=== PATIENT | female | born 1970 | race Caucasian/White ===

== ENCOUNTER → 2019-04-22 08:25 | Outpatient (BNVA) | payer OTHER, SELFPAY | PROVIDERS: Family Provider Family Medicine; PCP Family Medicine; Visit Provider Specialist | DX: G43.711 Chronic migraine without aura, intractable, with status migrainosus (principal) | CPT/HCPCS: 64615; J0585 ==

== ENCOUNTER 2019-05-17 13:01 | Outpatient (CLI) | payer OTHER, SELFPAY ==
--- NOTE | 2019-05-17 13:10 | XR_ITS ---
WS: [id number] LUMBAR SPINE TECHNIQUE: 3 views of the lumbar spine CLINICAL INFORMATION: LOW BACK PAIN COMPARISON: None. FINDINGS: Five [id number] lumbar vertebral bodies. Minimal lumbar curve convex left. Surgical clips overly ing the right renal fossa. Slight retrolisthesis L2 on L3 and L3 on L4 measuring 3 to 4 mm. Moderate facet arthropathy L4-L5 and L5-S1. Disc space heights are well preserved. Mild disc space narrowing L 5-S1. XR/XR lumbar spine 2-3V* [id number] IMPRESSION: 1. Minimal lumbar curve convex left. 2. No acute appearing compression fractures. 3. Slight retrolisthesis L2 on L3 and L3 on L4 measuring 3-4 mm.
--- NOTE | 2019-05-17 13:10 | XR_ITS ---
WS: [id number] HIPS BILATERAL TECHNIQUE: 5 views bilateral hips Including pelvis CLINICAL INFORMATION: HIP PAIN BILATERAL COMPARISON: None. FINDINGS: Both hips are normal in appearance. No acute fractures. Normal visualized pubic rami. XR/XR hip BI 3-4V wo/w [place] [id number] IMPRESSION: Normal bilateral hips
== END 2019-05-17 13:02 | disposition home or self-care (01) ==
LOC: RADWPI 13:05
PROVIDERS: Family Provider Family Medicine; PCP Family Medicine; Visit Provider Family Medicine
DX: M54.5 Low back pain (principal); M25.552 Pain in left hip; M25.551 Pain in right hip
CPT/HCPCS: 72100; 73522

== ENCOUNTER → 2019-07-29 12:52 | Outpatient (BNVA) | payer OTHER, SELFPAY | PROVIDERS: Family Provider Family Medicine; PCP Family Medicine; Visit Provider Specialist | DX: G43.711 Chronic migraine without aura, intractable, with status migrainosus (principal) | CPT/HCPCS: 64615; J0585 ==

== ENCOUNTER → 2019-09-14 16:23 | Outpatient (BNVA) | payer OTHER, SELFPAY | PROVIDERS: Family Provider Family Medicine; PCP Family Medicine; Visit Provider Internal Medicine Cardiovascular Disease | DX: I49.8 Other specified cardiac arrhythmias (principal); G47.33 Obstructive sleep apnea (adult) (pediatric); Q07.00 Arnold-Chiari syndrome without spina bifida or hydrocephalus; R07.89 Other chest pain | CPT/HCPCS: 80162 ==

== ENCOUNTER → 2019-10-21 10:36 | Outpatient (BNVA) | payer OTHER, SELFPAY | PROVIDERS: Family Provider Family Medicine; PCP Family Medicine; Visit Provider Specialist | DX: G43.711 Chronic migraine without aura, intractable, with status migrainosus (principal) | CPT/HCPCS: 64615; J0585 ==

== ENCOUNTER 2019-11-23 11:12 | Outpatient (CLI) | payer OTHER, SELFPAY ==
--- NOTE | 2019-11-23 | XR_ITS ---
WS: [id number] RIGHT SHOULDER: 2 VIEW(S) TECHNIQUE: Internal and external rotation. HISTORY: SHOULDER PAIN COMPARISON: None available. No fracture or dislocation or soft tissue abnormality. Glenohumeral and AC joints are unremarkable. XR/XR shoulder RT min 2V* [id number] IMPRESSION: Normal RIGHT shoulder.
== END 2019-11-23 11:13 | disposition home or self-care (01) ==
LOC: RADWPI 11:15
PROVIDERS: Family Provider Family Medicine; PCP Family Medicine; Visit Provider Family Medicine
DX: M25.511 Pain in right shoulder (principal)
CPT/HCPCS: 73030

== ENCOUNTER 2020-01-06 08:23 | Outpatient (CLI) | payer OTHER, SELFPAY ==
--- NOTE | 2020-01-06 08:28 | MR_ITS ---
WS: [id number] MRI RIGHT SHOULDER NONCONTRAST TECHNIQUE: Sagittal T2, coronal T1, T2 and proton density imaging. Axial gradient PDE imaging. CLINICAL INFORMATION: RIGHT SHOULDER PAIN COMPARISON: None. FINDINGS: Mild degenerative arthritis AC joint with mild downsloping acromion. Slight subacromial spurring. Mil d narrowing of the subacromial space. Degenerative arthritis with joint space narrowing at the glenoh umeral joint. Supraspinatus appears intact. Infraspinatus appears intact. Normal teres minor and subscapularis. No full-thickness rotator cuff tears. Normal biceps tendon in the bicipital groove. Normal glenoid labru m. Normal bone marrow signal in the bony glenoid. Normal visualized soft tissues. MR/MR shoulder RT wo con* [id number] IMPRESSION: 1. Mild degenerative arthritis AC joint with mild downsloping of the acromion with slight subacromial spurring. 2. Supraspinatus and infraspinatus are intact. No full-thickness rotator cuff tears. 3. Normal subscapularis tendon. Normal biceps tendon in the bicipital groove. 4. Glenoid labrum appears grossly intact. 5. No other significant findings.
== END 2020-01-06 08:24 | disposition home or self-care (01) ==
LOC: RADSHAW 08:26
PROVIDERS: PCP Family Medicine; Visit Provider Family Medicine
DX: M19.011 Primary osteoarthritis, right shoulder (principal)
CPT/HCPCS: 73221

== ENCOUNTER 2020-02-10 07:34 | Outpatient (CLI) | payer OTHER, SELFPAY ==
--- NOTE | 2020-02-10 07:42 | MM_ITS ---
WS: [id number] Bilateral diagnostic digital mammogram, 02/10/2020 Clinical Data: HX OF BREAST CA Comparison: 01/17/2019, 10/29/2017, 10/07/2016, 09/15/2015, 09/13/2014, 09/09/2013, 08/10/2012, 02/11/2012, 08/08/2011, 07/10/2011, 01/31/2011, 12/06/2010, 09/14/2010, 03/20/2010, 02/21/2010. Findings: The breasts are extremely dense. There are biopsy clips in both breasts. Spiculated masses or cluster ed calcifications are seen. There are no secondary signs of carcinoma.. MM/[place] [id number] Impression: 1. Negative bilateral mammograms unchanged. 2. Recommend annual mammograms. BIRADS: 1-Negative FOLLOW UP: 1 Year Follow-up The CAD return checker was used.
== END 2020-02-10 07:35 | disposition home or self-care (01) ==
LOC: RADSHAW 07:37
PROVIDERS: PCP Family Medicine; Visit Provider Family Medicine
DX: Z85.3 Personal history of malignant neoplasm of breast (principal)
CPT/HCPCS: 77066

== ENCOUNTER → 2020-03-09 13:31 | Outpatient (BNVA) | payer OTHER, SELFPAY | PROVIDERS: PCP Family Medicine; Visit Provider Specialist | DX: G43.711 Chronic migraine without aura, intractable, with status migrainosus (principal) | CPT/HCPCS: 64615; J0585 ==

== ENCOUNTER → 2020-06-15 13:15 | Outpatient (BNVA) | payer OTHER, SELFPAY | PROVIDERS: PCP Family Medicine; Visit Provider Specialist | DX: G43.711 Chronic migraine without aura, intractable, with status migrainosus (principal) | CPT/HCPCS: 64615; J0585 ==

== ENCOUNTER → 2020-07-26 12:19 | Outpatient (BNVA) | payer OTHER, SELFPAY | PROVIDERS: PCP Family Medicine; Visit Provider Specialist | DX: M54.81 Occipital neuralgia (principal); G43.711 Chronic migraine without aura, intractable, with status migrainosus; Q07.00 Arnold-Chiari syndrome without spina bifida or hydrocephalus | CPT/HCPCS: 64405; 99212; J1030; J3490 ==

== ENCOUNTER → 2020-09-07 14:05 | Outpatient (BNVA) | payer OTHER, SELFPAY | PROVIDERS: PCP Family Medicine; Visit Provider Specialist | DX: G43.709 Chronic migraine without aura, not intractable, without status migrainosus (principal); M54.81 Occipital neuralgia | CPT/HCPCS: 64615; J0585 ==

== ENCOUNTER → 2020-09-22 09:23 | Outpatient (BNVA) | payer OTHER, SELFPAY | PROVIDERS: PCP Family Medicine; Visit Provider Specialist | DX: M54.81 Occipital neuralgia (principal); G43.711 Chronic migraine without aura, intractable, with status migrainosus; Q07.00 Arnold-Chiari syndrome without spina bifida or hydrocephalus | CPT/HCPCS: 64405; 99212; 99213; J0585 ==

== ENCOUNTER 2020-11-21 11:52 | Outpatient (CLI) | payer OTHER, SELFPAY ==
--- NOTE | 2020-11-21 12:05 | CT_ITS ---
WS: [id number] CT ABDOMEN AND PELVIS WITH CONTRAST HISTORY: RT LOWER AND UPPER QUADRANT PAIN TECHNIQUE: Imaging performed of the abdomen and pelvis with IV contrast. Single phase imaging of the abdomen. Coronal and sagittal reformats are submitted. All CT scans at [facility] use at least one of these dose optimization techniques: automated exposure control; mA and/or kV adjustment per patient size (includes targeted exams where dose is matched to clinical indication); or iterativ e reconstruction. IV CONTRAST: Omnipaque 300; 95 mL IV. Oral contrast: Yes. DLP: 871.46 mGycm COMPARISON: None available. Lower thorax: Lung bases are clear. Heart is normal size. Small hiatal hernia. Liver/biliary system: Top normal size with no intrahepatic dilatation. Gallbladder: Status post cholecystectomy. Pancreas: Normal size pancreas and pancreatic duct. No adjacent inflammation. Spleen: Normal size spleen. No mass or infarct. Adrenal glands: Normal. Right kidney: Normal size kidney. Tiny cortical hypodense densities are too small to characterize. No obstruction or solid mass. Left kidney: Normal size with peripheral tiny cortical hypodensities. No obstruction or solid mass. Aorta: Normal. Lymphadenopathy: None. Free fluid: None. GI tract: Mild diffuse constipation. Cecum is deep within the pelvis. The appendix is not definitely identified. No obstruction of the GI tract. There is moderate diffuse fecal retention and constipatio n. Abdominal wall: Unremarkable abdominal wall. No hernia. Pelvis: Prior hysterectomy. No pelvic masses. No free fluid. Urinary bladder is only partially disten ded. Bones: Unremarkable. CT/CT abdomen pelvis w con* [id number] IMPRESSION: 1. No acute abdominal or pelvic abnormalities. 2. Prior cholecystectomy and hysterectomy. 3. Liver is top normal size with no bile duct dilatation or mass. 4. Diffuse moderate constipation.
[2020-11-21] MEDS: iohexol 300 mg/mL 50 mL Btl PO (12:08)
[2020-11-21] MEDS: iohexol 300 mg/mL 100 mL Btl IV (13:37)
== END 2020-11-21 11:53 | disposition home or self-care (01) ==
PROVIDERS: PCP Family Medicine; Visit Provider Family Medicine
DX: R10.31 Right lower quadrant pain (principal); R10.11 Right upper quadrant pain; K59.00 Constipation, unspecified; Z90.49 Acquired absence of other specified parts of digestive tract; Z90.710 Acquired absence of both cervix and uterus
CPT/HCPCS: 74177; Q9967

== ENCOUNTER → 2020-11-30 14:37 | Outpatient (BNVA) | payer OTHER, SELFPAY | PROVIDERS: PCP Family Medicine; Visit Provider Specialist | DX: G43.711 Chronic migraine without aura, intractable, with status migrainosus (principal); M54.81 Occipital neuralgia; Q07.00 Arnold-Chiari syndrome without spina bifida or hydrocephalus | CPT/HCPCS: 64615; J0585 ==

== ENCOUNTER → 2020-12-27 14:35 | Outpatient (BNVA) | payer OTHER, SELFPAY | PROVIDERS: PCP Family Medicine; Visit Provider Specialist | DX: M54.81 Occipital neuralgia (principal); Q07.00 Arnold-Chiari syndrome without spina bifida or hydrocephalus; G43.711 Chronic migraine without aura, intractable, with status migrainosus | CPT/HCPCS: 64405; 64450; J1030; J3490 ==

== ENCOUNTER → 2021-02-13 08:28 | Outpatient (BNVA) | payer OTHER, SELFPAY | PROVIDERS: PCP Family Medicine; Visit Provider Specialist | DX: M54.81 Occipital neuralgia (principal); G43.711 Chronic migraine without aura, intractable, with status migrainosus; G47.33 Obstructive sleep apnea (adult) (pediatric); Q07.00 Arnold-Chiari syndrome without spina bifida or hydrocephalus | CPT/HCPCS: 64405; 64450; J1030; J3490 ==

== ENCOUNTER 2021-03-26 12:51 | Outpatient (CLI) | payer OTHER, SELFPAY ==
--- NOTE | 2021-03-26 13:04 | MM_ITS ---
WS: [id number] BILATERAL DIGITAL DIAGNOSTIC MAMMOGRAM MAMMOGRAPHY WITH CAD CLINICAL INFORMATION: HX OF BREAST CA COMPARISON: February 10, 2020 TECHNIQUE: Bilateral CC, MLO, and ML views. FINDINGS: The breasts are composed of heterogeneous fibroglandular density, which can limit the detection of sm all underlying mass lesions. Bilateral breast biopsy clips. No suspicious focal mass, asymmetry, calcifications, or architectural distortion. No evidence of josh gnancy. MM/[place] [id number] IMPRESSION: BI-RADS: 2-Benign FOLLOW UP: 1 Year Follow-up Recommend return to annual diagnostic mammography.
== END 2021-03-26 12:52 | disposition home or self-care (01) ==
LOC: RADSHAW 12:58
PROVIDERS: PCP Family Medicine; Visit Provider Family Medicine
DX: Z85.3 Personal history of malignant neoplasm of breast (principal)
CPT/HCPCS: 77066

== ENCOUNTER → 2021-09-06 13:23 | Outpatient (BNVA) | payer OTHER, SELFPAY | PROVIDERS: PCP Family Medicine; Visit Provider Family Medicine | DX: Z00.00 Encounter for general adult medical examination without abnormal findings (principal); Z13.220 Encounter for screening for lipoid disorders; R10.13 Epigastric pain | CPT/HCPCS: 80053; 80061; 83690; 85025; 86140 ==

== ENCOUNTER → 2021-09-26 12:10 | Outpatient (BNVA) | payer OTHER, SELFPAY | PROVIDERS: PCP Family Medicine; Visit Provider Internal Medicine Cardiovascular Disease | DX: R60.0 Localized edema (principal); I50.33 Acute on chronic diastolic (congestive) heart failure; R06.02 Shortness of breath | CPT/HCPCS: 80048; 83880 ==

== ENCOUNTER 2022-03-19 06:55 | Outpatient (CLI) | payer OTHER, SELFPAY ==
--- NOTE | 2022-03-19 07:15 | MR_ITS ---
WS: [id number] MRI HEAD WITHOUT CONTRAST TECHNIQUE: Sagittal T1, T2 axial, T2 axial FLAIR, axial and coronal T1 images, axial susceptibility w eighted imaging, axial diffusion weighted images, and coronal T2 images were obtained. 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 COMPARISON: MRI and December 22, 2015 FINDINGS: Prior postoperative changes resection of the posterior arch of C1 with Chiari decompression is unchan ged from previous. No significant crowding of the foramen magnum. Brainstem signal is normal. Chiari malformation has been decompressed. Normal fourth ventricle. No hydrocephalus. Paranasal sinuses and mastoid air cells are well aerated. Normal midline structures. No hemosiderin o n the susceptibly weighted imaging. Normal posterior fossa. Normal vascular flow voids at the skull b ase. No extra-axial fluid collections. No evidence of restricted diffusion to suggest acute ischemia. Moderate supratentorial white matter c hanges nonspecific in a patient this age but can be seen with hypertension, diabetes, and migraine he adaches. Demyelinating disease is less likely. This is unchanged from previous. MR/MR head wo con* [id number] IMPRESSION: 1. Prior postoperative changes of occipital craniotomy with resection posterio r arch of C1 for Chiari decompression. This is unchanged in appearance from pre vious. 2. Cerebellar tonsils are normal. No significant crowding of the foramen magnu m. Normal fourth ventricle. 3. No hydrocephalus. 4. Stable patchy supratentorial white matter changes nonspecific in a patient this age as previously described but unchanged.
--- NOTE | 2022-03-19 08:00 | MR_ITS ---
WS: [id number] MRI CERVICAL SPINE NONCONTRAST TECHNIQUE: Sagittal T1, T2 and STIR imaging. Axial T2, gradient, and fiesta imaging. 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 COMPARISON: None. FINDINGS: Prior postoperative changes resection of the posterior arch of C1 with Chiari decompression described on the MRI brain. Upper cervical spinal canal is patent. Small central protrusion at C5-C6. Cord sig nal is normal. No high-grade central canal stenosis. C2-C3: Mild RIGHT bony foraminal narrowing. Spinal canal and foramen are patent. Mild facet arthropat hy. C3-C4: Mild facet arthropathy. Spinal canal and foramen are patent. C4-C5: No significant disc bulging. Mild facet arthropathy. Spinal canal and foramen are patent. C5-C6: Shallow central disc protrusion with slight contact of the cervical cord. Spinal canal is barry nt. Mild facet arthropathy. Mild LEFT and no significant RIGHT foraminal narrowing. C6-C7: Mild disc osteophytic ridging. Mild LEFT and no significant RIGHT foraminal narrowing. Spinal canal is patent. C7-T1: Mild osteophytic ridging. Mild bilateral bony foraminal narrowing. Spinal canal is patent. Visualized brain stem structures: Normal. Prevertebral soft tissues: Normal. MR/MR cervical spin wo con* [id number] IMPRESSION: 1. Prior postoperative changes Chiari decompression as described on the MRI br ain with resection of posterior arch C1. 2. Upper cervical canal is patent. No syrinx in the cervical cord. 3. Shallow central disc protrusion C5-C6 with slight contact of the cervical c ord. Spinal canal is patent. 4. Otherwise Mild bony foraminal narrowing described above.
== END 2022-03-19 06:56 | disposition home or self-care (01) ==
LOC: RAD 06:55
PROVIDERS: PCP Family Medicine; Visit Provider Specialist
DX: Q07.00 Arnold-Chiari syndrome without spina bifida or hydrocephalus (principal); M50.222 Other cervical disc displacement at C5-C6 level
CPT/HCPCS: 70551; 72141

== ENCOUNTER 2022-03-28 08:41 | Outpatient (CLI) | payer OTHER, SELFPAY ==
--- NOTE | 2022-03-28 08:49 | MM_ITS ---
WS: [id number] BILATERAL DIAGNOSTIC DIGITAL BREAST MAMMOGRAPHY WITH CHOLO DISPLACEMENT VIEWS. CAD PERFORMED. RIGHT BREAST ULTRASOUND, LIMITED. HISTORY: HX OF BREAST CA, palpable nodule RIGHT breast. COMPARISON: 03/26/2021, 02/10/2020 and 12/30/2018 Bilateral craniocaudal and mediolateral oblique views are performed with tomosynthesis and SM. Cholo displacement views in CC and MLO projection also performed. Breasts composition: The breasts are extremely dense, which lowers the sensitivity of mammography. Partially obscured mass measuring 14 x 15 mm corresponds to the palpable marker. Mass is in the poste rior medial RIGHT breast. There is additional biopsy clip in the lateral RIGHT breast. Biopsy clip in the posterior LEFT breast. RIGHT breast ultrasound, limited. Ultrasound directed to the palpable nodule. Along the 2:00 axis, 2 cm from the nipple is a cluster of cysts. The largest cyst measures 1.7 x 0.9 cm. There is increased soft tissue in the posterior wall of the largest cyst which may be increased proteinaceous material as it does appear to layer. The sep tations some of this is an irregular. There is no increased vascularity. MM/[place] [id number] IMPRESSION: BI-RADS: 3-Probably Benign FOLLOW-UP: 6 Month Follow-up 1. Recommend 6 month RIGHT breast ultrasound follow-up to reevaluate the clust er of cysts. This cluster cyst is not completely cystic. There are a few small septations and layering proteinaceous debris. 2. Alternatively, ultrasound-guided biopsy could easily be performed.
--- NOTE | 2022-03-28 09:31 | US_ITS ---
WS: [id number] BILATERAL DIAGNOSTIC DIGITAL BREAST MAMMOGRAPHY WITH CHOLO DISPLACEMENT VIEWS. CAD PERFORMED. RIGHT BREAST ULTRASOUND, LIMITED. HISTORY: HX OF BREAST CA, palpable nodule RIGHT breast. COMPARISON: 03/26/2021, 02/10/2020 and 12/30/2018 Bilateral craniocaudal and mediolateral oblique views are performed with tomosynthesis and SM. Cholo displacement views in CC and MLO projection also performed. Breasts composition: The breasts are extremely dense, which lowers the sensitivity of mammography. Partially obscured mass measuring 14 x 15 mm corresponds to the palpable marker. Mass is in the poste rior medial RIGHT breast. There is additional biopsy clip in the lateral RIGHT breast. Biopsy clip in the posterior LEFT breast. RIGHT breast ultrasound, limited. Ultrasound directed to the palpable nodule. Along the 2:00 axis, 2 cm from the nipple is a cluster of cysts. The largest cyst measures 1.7 x 0.9 cm. There is increased soft tissue in the posterior wall of the largest cyst which may be increased proteinaceous material as it does appear to layer. The sep tations some of this is an irregular. There is no increased vascularity. US/US breast RT limited* [id number] IMPRESSION: BI-RADS: 3-Probably Benign FOLLOW-UP: 6 Month Follow-up 1. Recommend 6 month RIGHT breast ultrasound follow-up to reevaluate the clust er of cysts. This cluster cyst is not completely cystic. There are a few small septations and layering proteinaceous debris. 2. Alternatively, ultrasound-guided biopsy could easily be performed.
== END 2022-03-28 08:42 | disposition home or self-care (01) ==
PROVIDERS: PCP Family Medicine; Visit Provider Family Medicine
DX: Z85.3 Personal history of malignant neoplasm of breast (principal); N63.12 Unspecified lump in the right breast, upper inner quadrant
CPT/HCPCS: 76642; 77062; G0279

== ENCOUNTER 2022-04-02 09:41 | Outpatient (RCR) | payer OTHER, SELFPAY | END 2022-04-30 23:59 | disposition home or self-care (01) | LOC: SPT 09:41 | PROVIDERS: PCP Family Medicine; Visit Provider Family Medicine | DX: M25.551 Pain in right hip (principal) | CPT/HCPCS: 97110; 97161 ==

== ENCOUNTER → 2022-04-03 11:44 | Outpatient (BNVA) | payer OTHER, SELFPAY | PROVIDERS: PCP Family Medicine; Visit Provider Internal Medicine Cardiovascular Disease | DX: I50.9 Heart failure, unspecified (principal); R06.02 Shortness of breath | CPT/HCPCS: 36415; 80048; 80162 ==

== ENCOUNTER 2022-05-01 06:00 | Outpatient (RCR) | payer OTHER, SELFPAY | END 2022-05-03 23:59 | disposition home or self-care (01) | LOC: SPT 06:00 | PROVIDERS: PCP Family Medicine; Visit Provider Family Medicine | DX: M25.551 Pain in right hip (principal) | CPT/HCPCS: 97110 ==

== ENCOUNTER → 2022-05-22 15:04 | Outpatient (BNVA) | payer OTHER, SELFPAY | PROVIDERS: PCP Family Medicine; Visit Provider Clinical Nurse Specialist Adult Health | DX: R10.9 Unspecified abdominal pain (principal); K21.9 Gastro-esophageal reflux disease without esophagitis | CPT/HCPCS: 81000 ==

== ENCOUNTER 2022-05-24 11:53 | Outpatient (RCR) | payer OTHER, SELFPAY | END 2022-05-28 23:59 | disposition home or self-care (01) | LOC: SPT 11:53 | PROVIDERS: PCP Family Medicine; Visit Provider Specialist | DX: M54.2 Cervicalgia (principal) | CPT/HCPCS: 97162; 97530 ==

== ENCOUNTER 2022-05-29 06:00 | Outpatient (RCR) | payer OTHER, SELFPAY | END 2022-06-28 23:59 | disposition home or self-care (01) | LOC: SPT 06:00 | PROVIDERS: PCP Family Medicine; Visit Provider Specialist | DX: M54.2 Cervicalgia (principal) | CPT/HCPCS: 97110 ==

== ENCOUNTER → 2022-07-31 08:10 | Outpatient (BNVA) | payer OTHER, SELFPAY | PROVIDERS: PCP Family Medicine; Visit Provider Family Medicine | DX: E03.9 Hypothyroidism, unspecified (principal); N39.0 Urinary tract infection, site not specified; Z13.220 Encounter for screening for lipoid disorders; Z51.81 Encounter for therapeutic drug level monitoring | CPT/HCPCS: 80053; 80061; 83735; 84443; 85025; 87086 ==

== ENCOUNTER 2022-10-15 07:55 | Outpatient (CLI) | payer OTHER, SELFPAY ==
--- NOTE | 2022-10-15 08:45 | US_ITS ---
WS: [id number] ULTRASOUND BREAST RIGHT TECHNIQUE: Ultrasound right breast focused area of concern. CLINICAL INFORMATION: Cyst with septations on diagnostic mammogram COMPARISON: Ultrasound March 28, 2022 FINDINGS: Ultrasound RIGHT breast 2:00 and 3:00 position 1 cm from the nipple. Lobulated breast cysts are again visualized. Small amount of internal debris within the cysts which are otherwise simple in appearance. Previously described cluster of cysts has improved. The largest cyst measures 1.3 x 0.7 CM. No other suspicious findings. Findings have a benign appearance and recommend return to annual screening mammography. US/US breast RT limited* [id number] IMPRESSION: BI-RADS 2 benign Return to annual screening mammography.
== END 2022-10-15 07:56 | disposition home or self-care (01) ==
LOC: RAD 07:56
PROVIDERS: PCP Family Medicine; Visit Provider Family Medicine
DX: N60.01 Solitary cyst of right breast (principal); R92.8 Other abnormal and inconclusive findings on diagnostic imaging of breast
CPT/HCPCS: 76642

== ENCOUNTER 2023-01-08 12:43 | Outpatient (CLI) | payer OTHER, SELFPAY ==
--- NOTE | 2023-01-08 13:00 | CT_ITS ---
WS: [id number] CT CERVICAL SPINE HISTORY: M50.90 - Cervical disc disorder, unspecified, unspecified..., History of Arnold-Chiari malfo rmation. TECHNIQUE: Contiguous 2.0 mm axial imaging performed through the entire cervical spine. Sagittal and coronal reformats also performed. All CT scans at [facility] use at least one of these dose o ptimization techniques: automated exposure control; mA and/or kV adjustment per patient size (include s targeted exams where dose is matched to clinical indication); or iterative reconstruction. DLP: 164.57 mGy.cm COMPARISON: Prior MRI cervical spine 03/19/2022. Prior postoperative resection of the posterior arch of C1 with Chiari decompression. There is minimal ectasia of the cerebellar tonsils very similar to the prior MRI examination. No progression of the i nferior displacement of the cerebellar tonsils. There is also a surgical resection site involving the mid occipital bone. Normal cervical alignment. No fractures. Lateral masses of C1 and C2 are aligned. C2-C3: No transtentorial herniation of the cerebellar tonsils. Widely patent cervical canal C3-C4: Normal. C4-C5: Normal. C5-C6: Mild osteophytic ridging. No disc protrusions. C6-C7: Normal. C7-T1: Normal. Soft tissues are normal. Lung apices are clear. IMPRESSION: 1. Postoperative resection of the posterior arch of C1 and posterior occipital bone. Postsurgical lesli nges for Chiari decompression. 2. No transtentorial descent of the cerebellar tonsils or progression since 03/19/2022. 3. No significant central or foraminal stenosis.
== END 2023-01-08 12:44 | disposition home or self-care (01) ==
PROVIDERS: PCP Family Medicine; Visit Provider Specialist
DX: M50.90 Cervical disc disorder, unspecified, unspecified cervical region (principal); Z98.890 Other specified postprocedural states
CPT/HCPCS: 72125

== ENCOUNTER → 2023-04-01 10:38 | Outpatient (BNVA) | payer OTHER, SELFPAY | PROVIDERS: PCP Family Medicine; Visit Provider Internal Medicine Cardiovascular Disease | DX: R07.9 Chest pain, unspecified (principal) | CPT/HCPCS: 93005 ==

== ENCOUNTER 2023-04-02 08:35 | Outpatient (CLI) | payer OTHER, SELFPAY ==
--- NOTE | 2023-04-02 08:38 | MM_ITS ---
WS: [id number] Bilateral diagnostic 3D tomosynthesis digital mammogram, 04/02/2023 Clinical Data: HX:CA Comparison: 03/28/2022, 03/26/2021, 02/10/2020, 12/30/2018, 10/29/2017, 10/07/2016, 09/15/2015, 09/13/2014, 09/09/2013, 09/10/2012, 04/12/2011, 08/08/2011, 07/10/2011 09/14/2010 03/20/2010, 02/21/2010. Findings: The breasts show extreme density. There are biopsy clips in both breasts. There are no spiculated mas ses nor clustered calcifications. There are no secondary signs of carcinoma. Impression: 1. Dense breasts unchanged. 2. Return to annual mammograms. MM/[place] [id number] BIRADS: 2-Benign FOLLOW UP: 1 Year Follow-up The CAD material checker was used.
== END 2023-04-02 08:36 | disposition home or self-care (01) ==
LOC: RAD 08:35
PROVIDERS: PCP Family Medicine; Visit Provider Family Medicine
DX: Z85.9 Personal history of malignant neoplasm, unspecified (principal)
CPT/HCPCS: 77062; G0279

== ENCOUNTER → 2023-04-17 11:21 | Outpatient (BNVA) | payer OTHER, SELFPAY | PROVIDERS: PCP Family Medicine; Visit Provider Family Medicine | DX: Z51.81 Encounter for therapeutic drug level monitoring (principal); R10.9 Unspecified abdominal pain; E55.9 Vitamin D deficiency, unspecified; K21.9 Gastro-esophageal reflux disease without esophagitis; Z79.899 Other long term (current) drug therapy | CPT/HCPCS: 80053; 82306; 83690; 85025; 86141 ==

== ENCOUNTER → 2023-07-23 13:01 | Outpatient (BNVA) | payer OTHER, SELFPAY | PROVIDERS: PCP Family Medicine; Visit Provider Family Medicine | DX: E55.9 Vitamin D deficiency, unspecified (principal) | CPT/HCPCS: 82306 ==

== ENCOUNTER → 2023-09-17 14:41 | Outpatient (CLI) | payer OTHER, SELFPAY ==
--- NOTE | 2023-09-17 15:00 | USCV_ITS ---
Jo Manzano Age: 52 Gender: F : 1970 Exam Date: 09/17/2023 14:53 Ordering Phys: Wilbert Cardenas MD ([email or web address]) Technologist: [employer] Exam Location: [facility] [place]ication: PROCEDURES: Venous duplex imaging was performed in only the right lower extremity. On the right side, the common femoral, superficial femoral, profunda femoral, popliteal, posterior tibial, greater saphenous veins and the peroneal trunk were identified and interrogated in the standard fashion. These veins were found to be easily compressible with spontaneous blood flow. No evidence of insufficiency or thrombus noted. FINDINGS: no dvt CONCLUSIONS No evidence of right lower extremity DVT. Jose Arboleda MD (Electronically Signed) Final Date: 17 September 2023 16:55 S
== END | disposition home or self-care (01) ==
LOC: RAD 14:41
PROVIDERS: PCP Family Medicine; Visit Provider Internal Medicine Cardiovascular Disease
DX: M79.661 Pain in right lower leg (principal); M79.89 Other specified soft tissue disorders
CPT/HCPCS: 93971

== ENCOUNTER → 2023-10-07 07:46 | Outpatient (BNVA) | payer OTHER, SELFPAY | PROVIDERS: PCP Family Medicine; Visit Provider Family Medicine | DX: R19.7 Diarrhea, unspecified (principal) | CPT/HCPCS: 87045; 87177; 87209; 87427; 87449 ==

== ENCOUNTER → 2023-10-09 16:13 | Outpatient (CLI) | payer OTHER, SELFPAY ==
--- NOTE | 2023-10-09 16:30 | CTR_ITS ---
PROCEDURE INFORMATION: Exam: CTA Abdomen and Pelvis With Contrast Exam date and time: 10/09/2023 4:20 PM Age: 52 years old Clinical indication: Other: Leg edema; Prior surgery; Surgery date: 6+ months; Surgery type: Hyst, laproscopy x 2-endometriosis; Patient HX: HX of breast cancer TECHNIQUE: Imaging protocol: Computed tomographic angiography of the abdomen and pelvis with contrast. Exam focused on the arteries. 3D rendering (Not supervised by radiologist): MIP and/or 3D reconstructed images were created by the technologist. Radiation optimization: All CT scans at this facility use at least one of these dose optimization techniques: automated exposure control; mA and/or kV adjustment per patient size (includes targeted exams where dose is matched to clinical indication); or iterative reconstruction. Contrast material: OMNI 350; Contrast volume: 100 ml; Contrast route: INTRAVENOUS (IV); COMPARISON: CT abdomen pelvis w con* [id number] 11/21/2020 1:34 PM RADIATION DOSE METRICS: Total DLP (mGy-cm): 200.19 FINDINGS: Aorta: No aortic aneurysm. No aortic dissection. Celiac trunk and mesenteric arteries: No occlusion or significant stenosis. Renal arteries: No occlusion or significant stenosis. Right iliac arteries: No occlusion or significant stenosis. Left iliac arteries: No occlusion or significant stenosis. Liver: No mass. Gallbladder and biliary ducts: Cholecystectomy. The bile ducts are normal. Pancreas: Unremarkable. No mass. No ductal dilation. Spleen: Unremarkable. No splenomegaly. Adrenal glands: Unremarkable. No mass. Kidneys and ureters: Unremarkable. No solid mass. No hydronephrosis. Stomach and bowel: Radiopaque densities or contrast material in the distal small bowel. No obstruction. No mucosal thickening. Appendix: The appendix is not visualized. No secondary signs of appendicitis. Intraperitoneal space: Unremarkable. No free air. No significant fluid collection. Lymph nodes: Unremarkable. No enlarged lymph nodes. Urinary bladder: Unremarkable. No mass. Reproductive: Hysterectomy. The right ovary is not visualized. Possible small retained left ovary. Bones/joints: Curvature of the spine. No fracture. Soft tissues: Unremarkable. CT/CT angio abdomen pelvis [id number] IMPRESSION: 1. No acute findings.
[2023-10-09] MEDS: iohexol 350 mg/mL 500 mL Btl (per mL) IV (16:32)
== END | disposition home or self-care (01) ==
LOC: RAD 16:12
PROVIDERS: PCP Family Medicine; Visit Provider Internal Medicine Cardiovascular Disease
DX: R60.0 Localized edema (principal); Z98.890 Other specified postprocedural states; M43.9 Deforming dorsopathy, unspecified
CPT/HCPCS: 74174; Q9967

== ENCOUNTER → 2023-10-22 07:47 | Outpatient (BNVA) | payer OTHER, SELFPAY | PROVIDERS: PCP Family Medicine; Visit Provider Family Medicine | DX: R19.7 Diarrhea, unspecified (principal) | CPT/HCPCS: 87425; 87493 ==

== ENCOUNTER 2024-01-01 07:00 | Outpatient (CLI) | payer OTHER, SELFPAY ==
--- NOTE | 2024-01-01 07:04 | MR_ITS ---
WS: [id number] MRI/MRCP OF THE ABDOMEN WITHOUT GADOLINIUM ENHANCEMENT TECHNIQUE: Coronal T2 Fase BH, Axial T2 Fase BH, Axial T2 FS BH, Zxial 3D Lake BH, Axial DWI BH, 2D MRCP Radial BH, 3D MRCP (Resp), and Axial 3D Dyn BH Post sequences. CLINICAL INFORMATION: EXOCRINE PANCREATIC INSUFFICIENCY COMPARISON: CTA 10/09/[address] 2020 FINDINGS: Prior cholecystectomy and hysterectomy. Fluid and food products in the distended stomach. Normal live r. Adrenal glands are normal. Normal portal vein and splenic vein. Normal kidneys. No hydronephrosis. Tiny RIGHT renal cyst. Normal caliber abdominal aorta. Pancreas is normal in appearance. No pancreatic lesions. Normal common bile duct. No intrahepatic radha iary ductal dilatation. Tiny esophageal hiatal hernia. Celiac and SMA are patent. MR/MR MRCP [id number] Impression: 1. Prior cholecystectomy. 2. Normal common bile duct. No intrahepatic biliary ductal dilatation. 3. Normal pancreas. No pancreatic lesions. 4. No other acute findings.
== END 2024-01-01 07:01 | disposition home or self-care (01) ==
PROVIDERS: PCP Family Medicine; Visit Provider Internal Medicine
DX: K86.81 Exocrine pancreatic insufficiency (principal); Z90.49 Acquired absence of other specified parts of digestive tract; Z90.710 Acquired absence of both cervix and uterus
CPT/HCPCS: 74181

== ENCOUNTER → 2024-02-04 08:08 | Outpatient (BNVA) | payer OTHER, SELFPAY | PROVIDERS: PCP Family Medicine; Visit Provider Nurse Practitioner Women's Health | DX: R39.9 Unspecified symptoms and signs involving the genitourinary system (principal) | CPT/HCPCS: 81000 ==

== ENCOUNTER → 2024-02-24 15:56 | Outpatient (BNVA) | payer OTHER, SELFPAY | PROVIDERS: PCP Family Medicine; Visit Provider Internal Medicine Cardiovascular Disease | DX: I50.9 Heart failure, unspecified (principal) | CPT/HCPCS: 36415; 80162 ==

== ENCOUNTER → 2024-03-09 13:43 | Outpatient (BNVA) | payer OTHER, SELFPAY | PROVIDERS: PCP Family Medicine; Visit Provider Family Medicine | DX: Z51.81 Encounter for therapeutic drug level monitoring (principal); F41.9 Anxiety disorder, unspecified; E55.9 Vitamin D deficiency, unspecified; R10.13 Epigastric pain; R10.2 Pelvic and perineal pain | CPT/HCPCS: 80053; 82306; 83690; 83735; 84439; 84443; 85025 ==

== ENCOUNTER → 2024-03-10 07:49 | Outpatient (BNVA) | payer OTHER, SELFPAY | PROVIDERS: PCP Family Medicine; Visit Provider Family Medicine | DX: R19.7 Diarrhea, unspecified (principal); R63.4 Abnormal weight loss | CPT/HCPCS: 87493 ==

== ENCOUNTER 2024-03-26 08:44 | Outpatient (CLI) | payer OTHER, SELFPAY ==
--- NOTE | 2024-03-26 09:00 | US_ITS ---
WS: [id number] US pelv w/transvag [id number] HISTORY: Pelvic pain COMPARISON: 10/09/2023 Uterus has been removed. No midline mass. Peristalsing loops of bowel are noted in the pelvis. Neithe r ovary is identified. No ovarian remnant is seen. There are no masses within either adnexa. US/US pelv w/transvag [id number] IMPRESSION: 1. Status post hysterectomy and oophorectomy. 2. No residual LEFT ovary or remnant ovary identified.
== END 2024-03-26 08:45 | disposition home or self-care (01) ==
PROVIDERS: PCP Family Medicine; Visit Provider Family Medicine
DX: R10.2 Pelvic and perineal pain (principal); Z90.710 Acquired absence of both cervix and uterus
CPT/HCPCS: 76830; 76856

== ENCOUNTER 2024-04-21 13:41 | Outpatient (CLI) | payer OTHER, SELFPAY ==
--- NOTE | 2024-04-21 14:00 | MM_ITS ---
WS: [id number] Bilateral diagnostic 3D tomosynthesis digital mammogram, 04/21/2024 Clinical Data: History of breast cancer Comparison: 04/02/2023, 03/28/2022, 01/24/2021, 02/10/2020, 12/30/2018, 10/29/2017, 10/07/2016, 09/15/2015, 09/13/2014, 09/09/2013, 08/10/2012, 02/11/2012, 08/08/2011, 07/10/2011, 01/31/2011, 12/06/2010, 09/14/2010, , 02/21/2010. Findings: The breasts are extremely dense, which lowers the sensitivity of mammography. these calcifications. T he right breast shows no calcifications. There are biopsy clips in both breasts. MM/MM diag BI tomosynthesis [id number] Impression: 1. Development of small calcifications in the lateral aspect of left breast in the approximate 3 o'clock position. 2. Recommend compression views of the left breast in the CC and ML projections. Recommend left breast ultrasound in the lateral breast at 3:00. BIRADS: 0 - Incomplete: Need additional imaging evaluation FOLLOW UP: See Report The CAD checker loader was used
== END 2024-04-21 13:42 | disposition home or self-care (01) ==
LOC: RAD 13:42
PROVIDERS: PCP Family Medicine; Visit Provider Family Medicine
DX: Z85.3 Personal history of malignant neoplasm of breast (principal); R92.343 Mammographic extreme density, bilateral breasts; R92.1 Mammographic calcification found on diagnostic imaging of breast
CPT/HCPCS: 77062; G0279

== ENCOUNTER 2024-05-06 08:13 | Outpatient (CLI) | payer OTHER, SELFPAY ==
--- NOTE | 2024-05-06 08:28 | MM_ITS ---
WS: [id number] Left breast diagnostic 3D tomosynthesis digital mammogram, 05/06/2024 Clinical Data: ABNORMAL MAMMO Comparison: 04/21/2024, 04/02/2023 Findings: Small calcifications in the lateral aspect of the left breast at 3:00 are fine and do not show coarseness. Most likely these are dystrophic calcifications rather than malignant calcifications. The left breast tissue is extremely dense. MM/MM diag LT tomosynthesis [id number] Impression: 1. Small probably dystrophic calcifications left breast. 2. Recommend left breast ultrasound. DENSITY: The breasts are extremely dense, which lowers the sensitivity of mammo graphy. BIRADS: 2 - Benign FOLLOW UP: See Report The CAD checker loader was used.
--- NOTE | 2024-05-06 08:30 | US_ITS ---
WS: [id number] Left breast ultrasound, 05/06/2024 Clinical Data: ABNORMAL MAMMO Comparison: None. Findings: At the 3 o'clock position the calcifications are not identified. There is a small nodule measuring 0.3 x 0.7 x 0.7 cm which has uniform echotexture and a well-defined border. Most likely this represents a benign nodule. There is a smaller nodule also at the 3 o'clock position measuring 0.3 x 0.5 x 0.7 cm which has the appearance of a lymph node. US/US breast LT limited* [id number] Impression: 1. 2 small densities in left breast at the 3 o'clock position which are probabl y benign. 2. Recommend return to annual mammograms. BIRADS: 2 - Benign FOLLOW UP: 1 Year Follow-up
== END 2024-05-06 08:14 | disposition home or self-care (01) ==
LOC: RAD 08:14
PROVIDERS: PCP Family Medicine; Visit Provider Family Medicine
DX: R92.8 Other abnormal and inconclusive findings on diagnostic imaging of breast (principal); N63.25 Unspecified lump in the left breast, overlapping quadrants; R92.342 Mammographic extreme density, left breast
CPT/HCPCS: 76642; 77061; G0279

== ENCOUNTER → 2024-06-11 08:41 | Outpatient (BNVA) | payer OTHER, SELFPAY | PROVIDERS: PCP Family Medicine; Visit Provider Family Medicine | DX: R30.0 Dysuria (principal) | CPT/HCPCS: 81000; 87086 ==

== ENCOUNTER 2024-06-25 07:07 | Outpatient (CLI) | payer OTHER, SELFPAY ==
--- NOTE | 2024-06-25 07:15 | US_ITS ---
WS: [email or web address] ULTRASOUND RENAL TECHNIQUE: Ultrasound examination of both kidneys. CLINICAL INFORMATION: Left flank pain [id number] COMPARISON: None. FINDINGS: RIGHT: Right kidney is normal in size and appearance. Echogenicity: Normal. Cortical thickness: 0.9 cm; Normal. Hydronephrosis: None. Perinephric fluid: None. Right kidney measures: 10.5 cm x 6.0 cm x 4.1 cm. LEFT: Left kidney is normal in size and appearance. Echogenicity: Normal. Cortical thickness: 0.8 cm; Normal. Hydronephrosis: None. Perinephric fluid: None. Left kidney measures: 12.5 cm x 4.9 cm x 3.5 cm. Normal visualized aorta. Prevoid bladder: 5.2 cm x 2.8 cm x 8.4 cm; estimated volume 63.7 ml. Postvoid bladder: 3.0 cm x 1.7 cm x 6.0 cm; estimated volume 16.2 ml. US/US renal BI with PV bladder IMPRESSION: 1. Small postvoid residual measuring 16 cc 2. No hydronephrosis in either kidney. 3. LEFT kidney measures slightly larger than the RIGHT but otherwise normal in appearance
== END 2024-06-25 07:08 | disposition home or self-care (01) ==
PROVIDERS: PCP Family Medicine; Visit Provider Family Medicine
DX: R10.9 Unspecified abdominal pain (principal)
CPT/HCPCS: 76770; 76857

== ENCOUNTER → 2024-08-10 07:36 | Outpatient (BNVA) | payer OTHER, SELFPAY | PROVIDERS: PCP Family Medicine; Visit Provider Family Medicine | DX: R19.7 Diarrhea, unspecified (principal) | CPT/HCPCS: 87045; 87177; 87209; 87427; 87449; 87493 ==

== ENCOUNTER → 2024-10-27 07:36 | Outpatient (BNVA) | payer OTHER, SELFPAY | PROVIDERS: PCP Family Medicine; Visit Provider Family Medicine | DX: Z00.00 Encounter for general adult medical examination without abnormal findings (principal); E55.9 Vitamin D deficiency, unspecified; Z51.81 Encounter for therapeutic drug level monitoring; Z13.6 Encounter for screening for cardiovascular disorders; R53.81 Other malaise; R53.83 Other fatigue; R35.0 Frequency of micturition; N39.0 Urinary tract infection, site not specified; E53.8 Deficiency of other specified B group vitamins | CPT/HCPCS: 80053; 80061; 81000; 82306; 82607; 84443; 85025 ==

== ENCOUNTER → 2024-10-28 13:01 | Outpatient (BNVA) | payer OTHER, SELFPAY | PROVIDERS: PCP Family Medicine; Visit Provider Family Medicine | DX: N39.0 Urinary tract infection, site not specified (principal) | CPT/HCPCS: 87086 ==

== ENCOUNTER 2025-02-16 12:29 | Outpatient (CLI) | payer OTHER, SELFPAY ==
--- NOTE | 2025-02-16 12:37 | XRR_ITS ---
PROCEDURE INFORMATION: Exam: XR Thoracic Spine Exam date and time: 02/16/2025 12:47 PM Age: 54 years old Clinical indication: Pain in thoracic spine; With radiculopathy; Left; Soreness under both arms, radiating pain down lt bicep x few weeks. HX of breast cancer; Additional info: Thoracic radiculopathy level t1 TECHNIQUE: Imaging protocol: Radiologic exam of the thoracic spine. Views: 3 views. COMPARISON: MR MRCP [id number] 01/01/2024 7:17 AM FINDINGS: Bones/joints: There is gentle dextroconvex curvature. There is mild diffuse osteopenia. No acute fracture is detected. Disc spaces appear preserved. Soft tissues: Unremarkable. XR/XR thoracic spine 3V* [id number] IMPRESSION: 1. Gentle dextroconvex curvature. 2. Mild diffuse osteopenia. 3. No acute fracture detected. 4. If there is persistent clinical concern, MRI may be helpful for further evaluation.
--- NOTE | 2025-02-16 12:37 | XRR_ITS ---
PROCEDURE INFORMATION: Exam: XR Cervical Spine Exam date and time: 02/16/2025 12:47 PM Age: 54 years old Clinical indication: Radicular pain (radiculopathy); Cervical region; Soreness under both arms, radiating pain down lt bicep x few weeks. HX of breast cancer; Additional info: Cervical radiculopathy TECHNIQUE: Imaging protocol: Radiologic exam of the cervical spine. Views: 6 or more views. COMPARISON: CT cervical spin wo con* [id number] 01/08/2023 1:03 PM FINDINGS: Bones/joints: There is gentle levoconvex curvature of the cervical spine. There is minimal, 1-2 mm, anterolisthesis of C3 on C4 and of C4 on C5 seen in flexion only. No significant subluxation seen in neutral or extension. Only mild flexion and extension was demonstrated on these radiographs. No evidence of acute fracture from C1 to the top of T1. The T1 level is suboptimally evaluated due to overlap from the patient's shoulders on the lateral views. Disc spaces are preserved. Soft tissues: No significant prevertebral soft tissue swelling is seen. XR/XR cervical spine min 6V [id number] IMPRESSION: 1. Gentle levoconvex curvature. 2. Minimal, 1-2 mm, anterolisthesis at C3-C4 and C4-C5 seen in flexion only. 3. Otherwise unremarkable cervical spine radiographs. Evaluation at the T1 level is limited by overlap from the patient's shoulders on the lateral view. 4. If there is persistent clinical concern, MRI may be helpful for further evaluation.
== END 2025-02-16 12:30 | disposition home or self-care (01) ==
LOC: RAD 12:31
PROVIDERS: PCP Family Medicine; Visit Provider Family Medicine
DX: M54.12 Radiculopathy, cervical region (principal); M54.14 Radiculopathy, thoracic region; M85.88 Other specified disorders of bone density and structure, other site; Z85.3 Personal history of malignant neoplasm of breast; M43.8X2 Other specified deforming dorsopathies, cervical region
CPT/HCPCS: 72052; 72072

== ENCOUNTER 2025-03-28 13:15 | Outpatient (CLI) | payer OTHER, SELFPAY ==
--- NOTE | 2025-03-28 13:45 | MR_ITS ---
WS: [id number] MRI CERVICAL SPINE NONCONTRAST HISTORY: Cervical radiculopathy COMPARISON: 03/19/2022 Technique: Multiplanar, multisequence noncontrast imaging of the cervical spine. Postoperative resection of the posterior arch of C1 with Chiari decompression. Upper cervical spine does appear patent. There is a slight increase in the cervical lordosis which could be positional. Fourth ventricle is similar size to the prior study. No signal abnormalities are identified. No inferior descent of the cerebellar tonsils. Signal within the cervical cord is normal. Visualized posterior fossa is unremarkable. Craniocervical junction, C1 and C2 relationship, odontoid process and soft tissues are normal. C2-C3: Small RIGHT foraminal osteophyte with no stenosis. C3-C4: Mild facet arthritis. No stenosis. C4-C5: Mild facet arthritis. No stenosis. C5-C6: Shallow central disc protrusion and mild osteophytic ridging and facet arthritis. Very minimal foraminal narrowing. C6-C7: Normal. C7-T1: Small RIGHT foraminal nerve root diverticulum. No stenosis. Paraspinal soft tissue are normal. MR/MR cervical spin wo con* [id number] IMPRESSION: 1. Status post prior Chiari malformation decompression. No interval change. 2. No high-grade central or foraminal stenosis. 3. No cord compression. 4. Fourth ventricle remains normal size.
== END 2025-03-28 13:16 | disposition home or self-care (01) ==
LOC: RAD 13:15
PROVIDERS: PCP Family Medicine; Visit Provider Family Medicine
DX: M54.12 Radiculopathy, cervical region (principal); Z98.890 Other specified postprocedural states; M43.8X2 Other specified deforming dorsopathies, cervical region; M25.78 Osteophyte, vertebrae; M47.892 Other spondylosis, cervical region; M89.8X8 Other specified disorders of bone, other site
CPT/HCPCS: 72141